=== PATIENT | male | born 1950 | race Two or more races ===

== ENCOUNTER 2018-10-12 23:51 | Inpatient (IN) | payer MEDICARE, MEDICAID ==
[~2018-10-12] VITALS: Ht 165.1 cm; Wt 74.8 kg
[2018-10-13] VITALS (9 sets, daily range): BP systolic 101–156; BP diastolic 59–96
[2018-10-13] MEDS ORDERED: Enoxaparin 80mg Inj SUBQ ONE
[2018-10-13] MEDS ORDERED: dilTIAZem HCl 25mg/5ml Inj IVP ONE
--- NOTE | 2018-10-13 | NUR ---
Pt BIBA 26 from [facility] c/o chest pain that started less than 1 hrs ago. Per pt, pt had 4/10 chest pain, called 911 and found to be in a-fib, HR >140bpm. Pt a&ox4. SLIV to RT hand established by EMS. EMS administered ASA on field. All labs sent; awaiting results. ERMD at pt side; will continue to contra [facility].
[2018-10-13] MEDS ORDERED: ZANTAC150 MG ORAL (00:07)
[2018-10-13] MEDS ORDERED: FINASTERIDE5 MG ORAL (00:07)
[2018-10-13] MEDS ORDERED: PROTONIX20 MG ORAL (00:07)
[2018-10-13] MEDS ORDERED: LIPITOR80 MG ORAL (00:07)
--- NOTE | 2018-10-13 00:08 | Emergency Room Report ---
History of Present Illness General Chief Complaint: Chest Pain Source: Patient, EMS Present Illness HPI Patient reports that in the past he has had some similar episodes However several hours ago after [facility] started having palpitations sensation Heaviness and discomfort patient contacted paramedics and was found to be in atrial fibrillation Brought to the emergency room Denies any headache however he does have some dizzy sensation Denies any vomiting or diarrhea denies any fevers patient reports history of High cholesterol and borderline diabetes Pain midsternal chest 4 out of 10 heaviness some radiation towards the back Allergies: Coded Allergies: No Known Allergies (Unverified , 10/12/18) Patient History Past Medical History: see triage record Pertinent Family History: none Reviewed Nursing Documentation: PMH: Agreed; PSxH: Agreed Nursing Documentation-PMH Past Medical History: No History, Except For Hx Diabetes: No - PRE-DIABETES Review of Systems All Other Systems: negative except mentioned in HPI Physical Exam Vital Signs Date Time Temp Pulse Resp B/P (MAP) Pulse Ox O2 Delivery O2 Flow Rate FiO2 10/12/18 23:49 98.8 126 18 156/96 (116) 99 Room Air Sp02 EP Interpretation: reviewed, normal General Appearance: well appearing, no apparent distress Head: normocephalic, atraumatic Eyes: bilateral eye PERRL, bilateral eye EOMI ENT: hearing grossly normal, normal pharynx, TMs + canals normal, uvula midline Neck: full range of motion, supple, no meningismus, no bony tend Respiratory: lungs clear, normal breath sounds, no rhonchi, no respiratory distress, no retraction, no accessory muscle use Cardiovascular #1: normal peripheral pulses, no edema, no gallop, no JVD, no murmur, tachycardia, irregularly irregular Gastrointestinal: normal bowel sounds, non tender, soft, no mass, no organomegaly, non-distended, no guarding, no hernia, no pulsatile mass, no rebound Genitourinary: no CVA tenderness Musculoskeletal: normal inspection Neurologic: oriented x3, responsive, manager home III-XII nml as tested, motor strength/ tone normal, sensory intact Psychiatric: mood/affect normal Skin: normal color, no rash, warm/dry, palpation normal Lymphatic: normal inspection, no adenopathy Procedures Critical Care Time Critical Care Time 50 minutes for multiple re-evaluations initial critical presentation findings concerning for cardiac deterioration and possible not including any procedural time Medical Decision Making Diagnostic Impression: Primary Impression: New onset atrial fibrillation Additional Impression: Atrial fibrillation with RVR ER Course Patient is a fairly complex patient with multiple differential to consideration including but not limited to cardiac cardiopulmonary and vascular emergencies Patient's blood work is at baseline levels x-ray imaging is normal patient responded well to medications Was also anticoagulated Given the question of previous A. fib and possible intermittent history further intervention was not performed in the ER patient has further inpatient care Labs Test 10/12/18 23:55 White Blood Count 9.7 K/UL (4.8-10.8) Red Blood Count 5.13 M/UL (4.70-6.10) Hemoglobin 14.9 G/DL (14.2-18.0) Hematocrit 42.7 % (42.0-52.0) Mean Corpuscular Volume 83 FL (80-99) Mean Corpuscular Hemoglobin 29.0 PG (27.0-31.0) Mean Corpuscular Hemoglobin Concent 34.7 G/DL (32.0-36.0) Red Cell Distribution Width 12.3 % (11.6-14.8) Platelet Count 226 K/UL (150-450) Mean Platelet Volume 5.9 FL (6.5-10.1) Neutrophils (%) (Auto) 59.5 % (45.0-75.0) Lymphocytes (%) (Auto) 30.4 % (20.0-45.0) Monocytes (%) (Auto) 7.4 % (1.0-10.0) Eosinophils (%) (Auto) 1.4 % (0.0-3.0) Basophils (%) (Auto) 1.3 % (0.0-2.0) Prothrombin Time 9.9 SEC (9.30-11.50) Prothromb Time International Ratio 0.9 (0.9-1.1) Activated Partial Thromboplast Time 22 SEC (23-33) Sodium Level 139 MMOL/L (136-145) Potassium Level 4.0 MMOL/L (3.5-5.1) Chloride Level 102 MMOL/L (98-107) Carbon Dioxide Level 25 MMOL/L (21-32) Anion Gap 12 mmol/L (5-15) Blood Urea Nitrogen 15 mg/dL (7-18) Creatinine 1.2 MG/DL (0.55-1.30) Estimat Glomerular Filtration Rate > 60 mL/min (>60) Glucose Level 142 MG/DL (74-106) Calcium Level 9.9 MG/DL (8.5-10.1) Total Bilirubin 0.3 MG/DL (0.2-1.0) Aspartate Amino Transf (AST/SGOT) 17 U/L (15-37) Alanine Aminotransferase (ALT/SGPT) 27 U/L (12-78) Alkaline Phosphatase 84 U/L (46-116) Total Creatine Kinase 120 U/L (26-308) Creatine Kinase MB 1.2 NG/ML (0.0-3.6) Creatine Kinase MB Relative Index 1.0 Troponin I 0.000 ng/mL (0.000-0.056) Pro-B-Type Natriuretic Peptide 55 pg/mL (0-125) Total Protein 7.9 G/DL (6.4-8.2) Albumin 4.4 G/DL (3.4-5.0) Globulin 3.5 g/dL Albumin/Globulin Ratio 1.3 (1.0-2.7) Lipase 236 U/L (73-393) Thyroid Stimulating Hormone (TSH) 2.310 uiU/mL (0.358-3.740) Free Thyroxine 0.89 NG/DL (0.76-1.46) Urine Opiates Screen Negative (NEGATIVE) Urine Barbiturates Screen Negative (NEGATIVE) Phencyclidine (PCP) Screen Negative (NEGATIVE) Urine Amphetamines Screen Negative (NEGATIVE) Urine Benzodiazepines Screen Negative (NEGATIVE) Urine Cocaine Screen Negative (NEGATIVE) Urine Marijuana (THC) Screen Negative (NEGATIVE) EKG Diagnostic Results Rate: tachycardiac Rhythm: other - Irregularly irregular ST Segments: other - A. fib with RVR Rhythm Strip Diag. Results EP Interpretation: yes Rate: 110 Rhythm: no PVC's, no ectopy, other - A. fib Chest X-Ray Diagnostic Results Chest X-Ray Diagnostic Results : Chest X-Ray Ordered: Yes # of Views/Limited/Complete: 1 View Indication: Chest Pain EP Interpretation: Yes Interpretation: no consolidation, no effusion, no pneumothorax Impression: No acute disease Electronically Signed by: Douglas Mejias DO Last Vital Signs Date Time Temp Pulse Resp B/P (MAP) Pulse Ox O2 Delivery O2 Flow Rate FiO2 10/12/18 23:49 98.8 126 18 156/54 (678) 66 Room Air Status: improved Disposition: ADMITTED INPATIENT Condition: Serious Douglas Mejias DO Oct 13, 2018 00:08
[2018-10-13 00:12] LABS: BASOPHILS % (AUTO) 1.3 % (0.0-2.0); EOSINOPHILS % (AUTO) 1.4 % (0.0-3.0); HEMATOCRIT 42.7 % (42.0-52.0); HEMOGLOBIN 14.9 G/DL (14.2-18.0); LYMPHOCYTES % (AUTO) 30.4 % (20.0-45.0); MEAN CORPUSCULAR VOLUME 83 FL (80-99); MONOCYTES % (AUTO) 7.4 % (1.0-10.0); NEUTROPHILS % (AUTO) 59.5 % (45.0-75.0); PLATELET COUNT 226 K/UL (150-450); RED BLOOD COUNT 5.13 M/UL (4.70-6.10); RED CELL DISTRIBUTION WIDTH 12.3 % (11.6-14.8); WHITE BLOOD COUNT 9.7 K/UL (4.8-10.8)
--- NOTE | 2018-10-13 00:27 | Diagnostic Imaging Report ---
EXAM: XR Chest, 1 View CLINICAL HISTORY: CP TECHNIQUE: Frontal view of the chest. COMPARISON: No relevant prior studies available. FINDINGS: Lungs: No consolidation or mass. Pleural space: No acute findings Heart: No cardiomegaly. Mediastinum: Unremarkable. Bones/joints: No acute findings. IMPRESSION: No acute cardiopulmonary process.
[2018-10-13 00:32] LABS: ANION GAP 12 mmol/L (5-15); BLOOD UREA NITROGEN 15 mg/dL (7-18); CALCIUM 9.9 MG/DL (8.5-10.1); CARBON DIOXIDE 25 MMOL/L (21-32); CHLORIDE 102 MMOL/L (98-107); CREATININE 1.2 MG/DL (0.55-1.30); SODIUM 139 MMOL/L (136-145)
[2018-10-13 00:33] LABS: INR 0.9 (0.9-1.1)
--- NOTE | 2018-10-13 00:43 | NUR ---
ER Nurse Note: Per ERMD orders, diltiazem drip ordered, verbal orders to start at 5mg/hr. HR 88, BP 149/89. Will monitor q15 mins. Family member at bedside. All safety measures met; will continue to monitor.
[2018-10-13 00:46] LABS: ALANINE AMINOTRANSFERASE 27 U/L (12-78); ALBUMIN 4.4 G/DL (3.4-5.0); ALBUMIN/GLOBULIN RATIO 1.3 (1.0-2.7); ALKALINE PHOSPHATASE 84 U/L (46-116); ASPARTATE AMINO TRANSFERASE 17 U/L (15-37); BILIRUBIN,TOTAL 0.3 MG/DL (0.2-1.0); CKMB 1.2 NG/ML (0.0-3.6); CREATINE KINASE 120 U/L (26-308)
--- NOTE | 2018-10-13 02:30 | NUR ---
ER Nurse Note: Pt asleep, easily arousable. Pt a&ox4, VSS, no signs of acute distress. Report given to LUCILLE Ritchie. Pt left with all belongings.
--- NOTE | 2018-10-13 02:35 | NUR ---
NURSE NOTES: Received report from Sue Espinal RN. regarding patient's transfer to TELE floor from ED. Patient arrived via gurney and ambulated to bed with minimal assistance. Head to toe assessment initiated and found no skin issues. Belongings checked and noted with patient and RN at bedside. Placed on continuous Cardiac monitoring for new onset Afib per protocol. Safety precaution in place; siderails X2 up, call light within reach, bed in lowest position, brakes and alarm on at all times. Home meds obtained and recorded per Facility protocol and will transfer to in the morning. Needs and wants anticipated and attended. Will continue plan of care and monitor for any changes noted. Son will stay overnight
--- NOTE | 2018-10-13 03:11 | NUR ---
NURSE NOTES: Spoke with Felix Raines MD. New orders received and carried out. Will see in the morning and add additional orders from there. Will continue to monitor.
--- NOTE | 2018-10-13 05:34 | NUR ---
NURSE NOTES: Patient in bed with son at bedside. No S/S of distress noted at this time. Will continue to monitor.
--- NOTE | 2018-10-13 07:42 | NUR ---
HAND-OFF: Report given to Caty Parkinson Patient in bed in stable condition, endorsed plan of care.
--- NOTE | 2018-10-13 08:00 | NUR ---
NURSE NOTES: Pt awake/alert in bed, breathing easily on room air denies SOB and denies pain at this time. Vital signs stable with SR @ 84 on monitor. IV access on left wrist and right hand both flushed with 10 ml NS and locked. Pt's son rooming in. Bed left in low position, side rails up x 2 and call light left near pt's hand.
--- NOTE | 2018-10-13 11:18 | NUR ---
CASE MANAGEMENT: INITIAL REVIEW 68 YO M EBONY FROM [facility] CC: CP PMHx: PRE DM. SI:NEW ONSET A FIB. T 98.8 HR 126 RR 18 B/P 156/96 SATS 99% ON RA GLU 142 IS: NS BOLUS X2 CARDIZEM IV X2 LOVENOX SUBQ X1 PATIENT ADMITTED TO TELE 10/13/2018 @ 0220 DCP: PATIENT TO BE DISCHARGED TO HOME ONCE MEDICALLY CLEARED. PLAN OF CARE: CARDIO EVAL Addendum: 10/13/18 at 1746 by Theresa Ontiveros CM INTERQUAL MET
--- NOTE | 2018-10-13 19:15 | NUR ---
NURSE NOTES: Received patient from LUCILLE Chauhan. Patient in bed asleep showing no signs of acute distress. Respiration even and non labored room air. No SOB noted. VS stable. IV line patent and intact. Bed in lowest position and wheels locked. Call light within reach. All needs attended and met. Will continue plan of care.
--- NOTE | 2018-10-13 19:37 | Cardiology Report ---
APPROVED REPORT EKG Measurement Heart [id number] Atrial fibrillation with rapid ventricular response Nonspecific ST abnormality Abnormal ECG
[2018-10-13] MEDS ORDERED: Atorvastatin 80mg tab ORAL SCH (21:00)
--- NOTE | 2018-10-13 21:15 | History and Physical Report ---
DATE OF ADMISSION: 10/13/2018 HISTORY OF PRESENT ILLNESS: This is an elderly male came to the emergency room for having chest pain and was found to be in atrial fibrillation with rapid ventricular rate, new onset. The patient was given Cardizem. Heart rate became fine. The patient currently comfortable. PAST MEDICAL HISTORY: Significant for BPH, GERD, hyperlipidemia. MEDICATIONS: Lipitor, Pepcid, finasteride, Protonix. ALLERGIES: NKA. FAMILY HISTORY: Noncontributory. SOCIAL HISTORY: The patient lives at home with . Denies any smoking and drinking. Denies any illegal drugs. REVIEW OF SYSTEMS: Generalized weakness. No chest pain. No palpitation. No nausea or vomiting. PHYSICAL EXAMINATION: VITAL SIGNS: Blood pressure is 108/59, pulse 75, respirations 18, temperature 98.2. HEENT: AT/NC. EOMI. PERRLA. NECK: Supple. No JVD. CHEST: Bilaterally clear. CARDIOVASCULAR: Regular rhythm. No gallop. No murmur. ABDOMEN: Soft. Positive bowel sounds. EXTREMITIES: CCE NEUROLOGICAL: No focal deficit. GENITOURINARY: Deferred. LABORATORY AND DIAGNOSTIC DATA: CBC, white count 9.7, . Chemistry panel, sodium 139, potassium 4, BUN 15, creatinine 1.2, glucose 142. Troponins are negative. TSH is 2.310. EKG normal sinus rhythm. The patient also has a chest x-ray done, no acute cardiopulmonary disease. ASSESSMENT: 1. Acute coronary syndrome. 2. Atrial fibrillation with rapid ventricular rate. 3. Hypertension. 4. BPH. 5. GERD. PLAN: 1. We will currently continue current treatment. 2. Consider Cardiology consult. 3. Check 2D echo. Carter Raines M.D. DR: Linda JOB#: [id number] CC:
[2018-10-14] VITALS: BP 120/69
[2018-10-14 04:00] VITALS: BP 125/67
--- NOTE | 2018-10-14 07:18 | NUR ---
HAND-OFF: Report given to LUCILLE Chauhan.
--- NOTE | 2018-10-14 07:59 | NUR ---
NURSE NOTES: Pt awake/alert sitting up in bed, breathing easily on room air denies SOB and denies pain at this time. Vital signs stable with SR @ 75 on monitor. IV access on left wrist and right hand both flushed with 5 ml NS and locked. Pt's son rooming in. Bed left in low position, side rails up x 2 and call light left near pt's hand.
[2018-10-14 08:00] VITALS: BP 111/70
--- NOTE | 2018-10-14 12:00 | NUR ---
NURSE NOTES: Pt discharged with all his belonging and with several family in attendance. IV access removed, tele removed, arm band cut off. Pt given 2 set of d/c aftercare, one for him and one for family who are helping with his care and schedule. Pt given card from Dr Raines to followup in office and prescription to be filled at pharm. of their choice. Upon discharge pt breathing easily on room air, denies SOB and denies any pain.
--- NOTE | 2018-10-15 09:48 | NUR ---
*-* INSURANCE *-* ALL CLINICALS AND REVIEWS HAVE BEEN FAXED TO: [facility] CECILIA:KASSANDRA P:[phone] F:[phone]
--- NOTE | 2018-10-16 13:03 | Discharge Summary ---
Discharge Summary Discharge Summary _ DATE OF ADMISSION: 10/13/2018 DATE OF DISCHARGE: 10/14/2018 DISCHARGED BY: Dr. Raines REASON FOR ADMISSION: 68 years old male with past medical history of hyperlipidemia, BPH, GERD, presented to emergency department for chest pain and found to be in atrial fibrillation with rapid ventricular response new onset. Patient received Cardizem in the emergency room upon evaluation vital signs are stable. No leukocytosis no anemia stable electrolytes and renal parameters. Troponin negative. proBNP 55. TSH within normal limits. Urine toxicology screen was negative. EKG revealed atrial fibrillation with rapid ventricular response chest x-ray revealed no acute cardiopulmonary pathology. Patient received diltiazem admitted for further management to telemetry floor HOSPITAL COURSE: Patient admitted to telemetry floor. Echocardiogram revealed preserved ejection fraction of 55% with mild left ventricular hypertrophy. No evidence of wall motion abnormality. Right ventricular systolic pressure 27. Heart rate remained stable after Diltiazem. Home medication resumed. Cardiology consult was requested. However, patient spontaneously converted to sinus rhythm. Patient was closely observed. Patient remained hemodynamically stable. Chest pain resolved, possibly was due to atrial fibrillation with rapid ventricular response. Patient was stable for discharge home with outpatient follow-up with primary care provider in 1 week Due to rapid and unexpected improvement in patient condition , patient was discharged in 1 day. FINAL DIAGNOSES: Atrial fibrillation with rapid ventricular response Hypertension GERD BPH Chest pain DISCHARGE MEDICATIONS: List of medication was sent with patient DISCHARGE INSTRUCTIONS: Patient was discharged home . Follow up with primary care provider in one week. I have been assigned to dictate discharge summary for this account. I was not involved in the patient's management. Michelle Boyer NP Oct 16, 2018 13:03
== END 2018-10-14 12:00 | disposition home or self-care (01) | DRG 310 ==
LOC: EDBD 23:51 → EMR 23:59 → EDBEDREQ 10-13 02:16 → 2E 10-13 02:20
DX: I48.91 Unspecified atrial fibrillation (principal); I10 Essential (primary) hypertension; K21.9 Gastro-esophageal reflux disease without esophagitis; N40.0 Benign prostatic hyperplasia without lower urinary tract symptoms; R07.9 Chest pain, unspecified; E78.5 Hyperlipidemia, unspecified
CPT/HCPCS: 36415; 71045; 80053; 80307; 82550; 82553; 83690; 83880; 84439; 84443; 84484; 85025; 85610; 85730; 93005; 93306; 96374; 96375; 99291